=== PATIENT | male | born 1935 | race Two or more races ===

== ENCOUNTER 2016-08-14 11:30 | Inpatient (IN) | payer SELFPAY ==
[~2016-08-14] VITALS: Ht 162.6 cm; Wt 46.9 kg
[2016-08-14 12:29] LABS: Basophils # (auto) 0 uL; Basophils % (auto) 0.1 % (0.0-2.0); Eosinophils # (auto) 0 uL; Eosinophils % (auto) 0.5 % (0.0-7.0); Hematocrit 36.8 % (41.0-53.0); Hemoglobin 11.8 g/dL (13.5-17.5); Lymphocytes # (auto) 0.6 uL; Lymphocytes % (auto) 9.2 % (10.0-50.0); Mean Corpuscular Volume 93.8 fL (80.0-100.0); Mean Platelet Volume 6.6 fL (7.4-10.4); Monocytes # (auto) 0.4 uL; Monocytes % (auto) 5.9 % (0.0-12.0); Neutrophils # (auto) 5.9 uL; Neutrophils % (auto) 84.3 % (37.0-80.0); Platelet Count (auto) 405 10^3/uL (140-450); Red Cell Distribution Width 16.8 % (11.6-16.0); White Blood Cell 7.1 10^3/uL (4.4-10.8)
[2016-08-14 13:08] LABS: Albumin 2.7 g/dL (3.4-5.0); BUN/Creatinine Ratio 44.6; Bilirubin, Total 0.5 mg/dL (0.2-1.0); Calcium 7.6 mg/dL (8.5-10.1); Magnesium 2.8 mg/dL (1.6-2.6); Potassium 4.1 mmol/L (3.5-5.1); Total Protein 12.8 g/dL (6.4-8.2)
[2016-08-14] MEDS ORDERED: cefTRIAXone 1GM/50ML D5W 50 ML IV ONE ×2 (13:15→16:00)
[2016-08-14 14:26] LABS: INR 1.05 (0.9-1.15); Partial Thromboplastin Time 26.9 sec (22.64-33.71); Prothrombin Time 10.8 sec (9.37-12.3)
[2016-08-14] MEDS ORDERED: NITROGLYCERIN 0.4 MG SL TAB SL PRN (16:00)
[2016-08-14] MEDS ORDERED: AZITHROMYCIN 500MG/D5W 250ML 250 ML IV ONE (16:00)
[2016-08-14] MEDS: SODIUM CHLORIDE 0.9% 1,000 ML IV SCH (16:43)
[2016-08-14 17:32] LABS: Urine Bilirubin Negative (Negative); Urine Color Yellow (Yellow); Urine Glucose Normal (Normal); Urine Hyaline Cast FEW /lpf (0 - 2); Urine Ketone Negative (Negative); Urine Mucus FEW (None Seen); Urine Nitrite Negative (Negative); Urine RBC 3 /hpf (0 - 3); Urine Urobilinogen Normal (Negative)
[2016-08-14 17:34] LABS: Urine Blood 1+ /uL (Negative)
[2016-08-14] MEDS: ALBUTEROL SULF 2.5 MG/0.5ML(0.5%) NEB SOLN NEB SCH (18:25)
[2016-08-14] MEDS: IPRATROPIUM BROM 0.5 MG/2.5ML INH SOL NEB SCH (18:25)
[2016-08-14 20:18] VITALS: BP 165/95
[2016-08-14 20:30] VITALS: BP 151/77
[2016-08-14 21:39] VITALS: BP 151/77
[2016-08-14] MEDS ORDERED: CAPT25TA76 PO (22:48)
[2016-08-14] MEDS ORDERED: AMLO-412 PO (22:48)
[2016-08-14] MEDS ORDERED: CARV6.25 PO (22:48)
[2016-08-14] MEDS ORDERED: LACT10SO PO (22:48)
[2016-08-14] MEDS ORDERED: SPIR25TA89 PO (22:48)
[2016-08-14] MEDS ORDERED: OME20T PO (22:48)
[2016-08-14] MEDS ORDERED: TRAM100T37 PO (22:48)
[2016-08-15] MEDS: SODIUM CHLORIDE 0.9% 1,000 ML IV SCH ×2 (02:45→18:40)
[2016-08-15 05:13] VITALS: BP 136/72
[2016-08-15] MEDS: IPRATROPIUM BROM 0.5 MG/2.5ML INH SOL NEB SCH ×3 (06:30→20:26)
[2016-08-15] MEDS: ALBUTEROL SULF 2.5 MG/0.5ML(0.5%) NEB SOLN NEB SCH ×3 (06:30→20:26)
[2016-08-15 06:37] LABS: Basophils # (auto) 0 uL; Basophils % (auto) 0.2 % (0.0-2.0); Eosinophils # (auto) 0 uL; Eosinophils % (auto) 0.6 % (0.0-7.0); Hematocrit 31.2 % (41.0-53.0); Lymphocytes # (auto) 0.8 uL; Lymphocytes % (auto) 16.7 % (10.0-50.0); Mean Corpuscular Hemoglobin 29.9 pg (28.0-32.0); Mean Corpuscular Hgb Conc. 32.2 g/dL (32.0-36.0); Mean Platelet Volume 6.6 fL (7.4-10.4); Monocytes # (auto) 0.4 uL; Monocytes % (auto) 8.5 % (0.0-12.0); Neutrophils # (auto) 3.6 uL; Platelet Count (auto) 387 10^3/uL (140-450); Red Cell Distribution Width 17.3 % (11.6-16.0); White Blood Cell 4.9 10^3/uL (4.4-10.8)
[2016-08-15 07:12] LABS: BUN/Creatinine Ratio 39.5; Calcium 7.3 mg/dL (8.5-10.1)
[2016-08-15 08:00] VITALS: BP 147/79
[2016-08-15] MEDS ORDERED: BARIUM SULFATE 98% 340 GM PWDR ONE (08:39)
[2016-08-15] MEDS ORDERED: EZ PAQUE SUSP 12OZ BTL ONE (08:39)
[2016-08-15] MEDS ORDERED: EZ-GAS II GRANULES (RADIOLOGY USE) PO ONE (08:40)
[2016-08-15 09:04] VITALS: BP 147/79
[2016-08-15] MEDS: cefTRIAXone 1GM/50ML D5W 50 ML IV SCH (10:59)
[2016-08-15] MEDS: AZITHROMYCIN 500MG/D5W 250ML 250 ML IV SCH (11:00)
[2016-08-15 13:07] VITALS: BP 163/78
[2016-08-15] MEDS: MORPHINE SULF INJ 2 MG/ML SYRINGE 1ML IV PRN (13:29)
[2016-08-15] MEDS ORDERED: cloNIDine HCL 0.1 MG TAB PO PRN (14:15)
[2016-08-15 17:40] VITALS: BP 151/76
[2016-08-15] MEDS: BOOST PLUS 8 ounce PO SCH ×2 (18:00→21:54)
[2016-08-15 21:56] VITALS: BP 136/69
[2016-08-16 05:03] VITALS: BP 137/76
[2016-08-16 06:08] LABS: Basophils # (auto) 0 uL; Basophils % (auto) 0.2 % (0.0-2.0); Eosinophils # (auto) 0 uL; Eosinophils % (auto) 0.5 % (0.0-7.0); Hematocrit 30.8 % (41.0-53.0); Hemoglobin 9.9 g/dL (13.5-17.5); Lymphocytes # (auto) 1.1 uL; Mean Corpuscular Hemoglobin 30.1 pg (28.0-32.0); Mean Corpuscular Hgb Conc. 32.2 g/dL (32.0-36.0); Mean Corpuscular Volume 93.6 fL (80.0-100.0); Mean Platelet Volume 6.3 fL (7.4-10.4); Monocytes # (auto) 0.5 uL; Monocytes % (auto) 9.2 % (0.0-12.0); Neutrophils % (auto) 70.1 % (37.0-80.0); Platelet Count (auto) 409 10^3/uL (140-450); Red Cell Distribution Width 16.6 % (11.6-16.0); White Blood Cell 5.7 10^3/uL (4.4-10.8)
[2016-08-16 06:25] LABS: Albumin 2.2 g/dL (3.4-5.0); BUN/Creatinine Ratio 31.4; Calcium 6.4 mg/dL (8.5-10.1); Potassium 3.8 mmol/L (3.5-5.1)
[2016-08-16 06:28] LABS: Bilirubin, Total 0.3 mg/dL (0.2-1.0)
[2016-08-16] MEDS: BOOST PLUS 8 ounce PO SCH ×4 (06:39→22:08)
[2016-08-16] MEDS: ALBUTEROL SULF 2.5 MG/0.5ML(0.5%) NEB SOLN NEB SCH ×3 (07:07→19:55)
[2016-08-16] MEDS: IPRATROPIUM BROM 0.5 MG/2.5ML INH SOL NEB SCH ×3 (07:07→19:55)
[2016-08-16 09:00] VITALS: BP 153/75
[2016-08-16] MEDS: cefTRIAXone 1GM/50ML D5W 50 ML IV SCH (09:10)
[2016-08-16] MEDS: SODIUM CHLORIDE 0.9% 1,000 ML IV SCH ×2 (09:13→22:08)
[2016-08-16] MEDS: AZITHROMYCIN 500MG/D5W 250ML 250 ML IV SCH (09:40)
[2016-08-16 13:00] VITALS: BP 126/63
[2016-08-16] MEDS ORDERED: LORazepam 2MG/ML-1ML VIAL IV ONE (14:15)
[2016-08-16 17:00] VITALS: BP 121/73
[2016-08-16 20:00] VITALS: BP 155/77
[2016-08-16 22:00] VITALS: BP 155/77
[2016-08-17] VITALS (7 sets, daily range): BP systolic 134–147; BP diastolic 67–85
[2016-08-17] MEDS: BOOST PLUS 8 ounce PO SCH ×4 (06:10→21:47)
[2016-08-17] MEDS: IPRATROPIUM BROM 0.5 MG/2.5ML INH SOL NEB SCH ×4 (07:18→23:53)
[2016-08-17] MEDS: ALBUTEROL SULF 2.5 MG/0.5ML(0.5%) NEB SOLN NEB SCH ×4 (07:18→23:53)
[2016-08-17] MEDS: cefTRIAXone 1GM/50ML D5W 50 ML IV SCH (09:11)
[2016-08-17] MEDS: AZITHROMYCIN 500MG/D5W 250ML 250 ML IV SCH (09:45)
[2016-08-17] MEDS ORDERED: LISINOPRIL 10 MG TAB PO ONE (11:30)
[2016-08-17 12:07] LABS: Lambda Lite Chains Free Serum 9.41 mg/L (5.71-26.30)
[2016-08-17] MEDS: PRO-STAT 64 30ML PO SCH (17:23)
[2016-08-17] MEDS: MORPHINE SULF INJ 2 MG/ML SYRINGE 1ML IV PRN (21:07)
[2016-08-17] MEDS: SODIUM CHLORIDE 0.9% 1,000 ML IV SCH (23:48)
[2016-08-18] MEDS: SODIUM CHLORIDE 0.9% 1,000 ML IV SCH ×2 (01:03→01:11)
[2016-08-18 05:01] VITALS: BP 147/65
[2016-08-18] MEDS: BOOST PLUS 8 ounce PO SCH (06:00)
[2016-08-18] MEDS: ALBUTEROL SULF 2.5 MG/0.5ML(0.5%) NEB SOLN NEB SCH ×2 (06:28→13:09)
[2016-08-18] MEDS: IPRATROPIUM BROM 0.5 MG/2.5ML INH SOL NEB SCH ×2 (06:28→13:09)
[2016-08-18 07:00] VITALS: BP 134/67
[2016-08-18 08:00] VITALS: BP 134/67
[2016-08-18] MEDS: PRO-STAT 64 30ML PO SCH (09:03)
[2016-08-18] MEDS: cefTRIAXone 1GM/50ML D5W 50 ML IV SCH (09:03)
[2016-08-18] MEDS ORDERED: LISINOPRIL 10 MG TAB PO SCH (10:00)
[2016-08-18] MEDS ORDERED: AZITHROMYCIN 250 MG TAB PO SCH (10:00)
[2016-08-18 11:30] VITALS: BP 137/62
== END 2016-08-18 14:08 | disposition hospice, home (50) | DRG 840 ==
LOC: ER 11:43 → TELE 11:44 → TELE-WESTW 19:20
PROVIDERS: ADMIT Internal Medicine; ATTEND Internal Medicine
DX: C90.00 Multiple myeloma not having achieved remission (principal); J18.9 Pneumonia, unspecified organism; E43 Unspecified severe protein-calorie malnutrition; J96.00 Acute respiratory failure, unspecified whether with hypoxia or hypercapnia; E87.1 Hypo-osmolality and hyponatremia; Z68.1 Body mass index [BMI] 19.9 or less, adult; M48.54XA Collapsed vertebra, not elsewhere classified, thoracic region, initial encounter for fracture; C79.51 Secondary malignant neoplasm of bone; D50.9 Iron deficiency anemia, unspecified; F41.9 Anxiety disorder, unspecified; I50.9 Heart failure, unspecified; I11.0 Hypertensive heart disease with heart failure; R13.10 Dysphagia, unspecified
CPT/HCPCS: 36415; 71010; 71250; 74176; 74220; 77074; 80048; 80053; 81001; 82232; 82784; 83735; 83883; 84484; 85025; 85610; 85730; 86334; 86335; 87040; 87081; 93005; 94640; 94761; 96365; 96366; 96367; J0696